=== PATIENT | female | born 1985 | race Caucasian/White ===

== ENCOUNTER 2024-11-29 14:54 | Outpatient (CLI) | payer OTHER, SELFPAY | END 2024-11-29 14:55 | disposition home or self-care (01) | PROVIDERS: PCP Family Medicine; Visit Provider Family Medicine | DX: F31.9 Bipolar disorder, unspecified (principal); R53.83 Other fatigue; N39.0 Urinary tract infection, site not specified; B96.20 Unspecified Escherichia coli [E. coli] as the cause of diseases classified elsewhere | CPT/HCPCS: 80053; 80061; 84443; 86038; 87086 ==